=== PATIENT | female | born 1960 | race American Indian/Alaskan Native ===

== ENCOUNTER 2018-08-09 21:16 | Emergency (ER) | payer OTHER ==
[2018-08-09] MEDS ORDERED: TYLENOL PO ONE (22:25)
[2018-08-09] MEDS ORDERED: TYLENOL ONE (22:26)
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
[2018-08-10 02:41] VITALS: BP 148/60
== END 2018-08-10 02:41 | disposition home or self-care (01) ==
LOC: ED 21:16
DX: S16.1XXA Strain of muscle, fascia and tendon at neck level, initial encounter (principal); Z88.5 Allergy status to narcotic agent; V49.59XA Passenger injured in collision with other motor vehicles in traffic accident, initial encounter; W22.10XA Striking against or struck by unspecified automobile airbag, initial encounter; Y93.89 Activity, other specified; Y92.89 Other specified places as the place of occurrence of the external cause; Y99.8 Other external cause status
CPT/HCPCS: 99283